=== PATIENT | female | born 1990 | race Caucasian/White ===

== ENCOUNTER 2018-11-29 11:58 | Emergency (ER) | payer BC, OTHER ==
[2018-11-29] MEDS ORDERED: ONDANSETRON HCL INJ/PF 4 MG/2 ML SDV IV ONE (12:25)
[2018-11-29] MEDS ORDERED: NORMAL SALINE 1000 ML 1,000 ML IV ONE (12:25)
--- NOTE | 2018-11-29 12:26 | ER Document Report ---
ED Medical Screen (RME) - General Chief Complaint: Abdominal Pain Stated Complaint: DIFFICULTY BREATHING Time Seen by Provider: 11/29/18 12:23 Primary Care Provider: PADMINI GODWIN MD [Primary Care Provider] - Follow up as needed - [facility] Notes: 11/29/18 12:25 Patient is a 28-year-old female no significant past medical history or surgical history who presents complaining of epigastric abdominal pain that started this morning with associated nausea and vomiting. She is urinating normally and having normal bowel movements. Denies drug allergies. Pain does not radiate. No fever. I have treated and performed a rapid initial assessment of this patient. A comprehensive ED assessment and evaluation of the patient, analysis of test results and completion of medical decision making process will be conducted by additional ED providers. PHYSICAL EXAMINATION: GENERAL: Well-appearing, well-nourished and in no acute distress. - Related Data Allergies/Adverse Reactions: No Known Allergies Allergy (Unverified 11/29/18 12:23) Past Medical History - Social History Chew tobacco use (# tins/day): No Frequency of alcohol use: None Drug Abuse: None Physical Exam - Vital signs Vitals: Temp Pulse Resp BP Pulse Ox 97.8 F 63 32 H 145/88 H 100 11/29/18 12:11 11/29/18 12:11 11/29/18 12:11 11/29/18 12:11 11/29/18 12:11 Course - Vital Signs Vital signs: Temp Pulse Resp BP Pulse Ox 97.8 F 63 32 H 145/88 H 100 11/29/18 12:11 11/29/18 12:11 11/29/18 12:11 11/29/18 12:11 11/29/18 12:11 Doctor's Discharge - Discharge Referrals: PADMINI GODWIN MD [Primary Care Provider] - Follow up as needed
[2018-11-29 13:03] LABS: APPEARANCE,URINE CLEAR; BILIRUBIN,URINE NEGATIVE (NEGATIVE); COLOR,URINE YELLOW; GLUCOSE, URINE NEGATIVE (NEGATIVE); KETONES,URINE 80 mg/dL (NEGATIVE); LEUKOCYTE ESTERASE,URINE NEGATIVE (NEGATIVE); NITRITE,URINE NEGATIVE (NEGATIVE); PROTEIN,URINE NEGATIVE (NEGATIVE); UROBILINOGEN,URINE NEGATIVE mg/dL (<2.0)
[2018-11-29 13:03] LABS: ABSOLUTE LYMPHOCYTES (AUTO) 0.7 10^3/uL (0.5-4.7); ABSOLUTE MONOCYTES (AUTO) 0.2 10^3/uL (0.1-1.4); ABSOLUTE NEUT (AUTO) 5.9 10^3/uL (1.7-8.2); BASOPHILS % (AUTO) 0.2 % (0-2); EOSINOPHILS % (AUTO) 0.1 % (0-6); HEMATOCRIT 41.3 % (36.0-47.0); HEMOGLOBIN 14.3 g/dL (12.0-15.5); LYMPHOCYTES % (AUTO) 10.2 % (13-45); MEAN CORPUSCULAR HEMOGLOBIN 31.3 pg (27.0-33.4); MEAN CORPUSCULAR HGB CONC 34.6 g/dL (32.0-36.0); MEAN CORPUSCULAR VOLUME 91 fl (80-97); MONOCYTES % (AUTO) 3.4 % (3-13); PLATELET COUNT 307 10^3/uL (150-450); RED BLOOD COUNT 4.56 10^6/uL (3.72-5.28); RED CELL DISTRIBUTION WIDTH 12.4 % (11.5-14.0); SEGMENTED NEUTROPHILS % (AUTO) 86.1 % (42-78); TOTAL CELLS COUNTED % (AUTO) 100 %; WHITE BLOOD COUNT 6.9 10^3/uL (4.0-10.5)
[2018-11-29 13:20] LABS: ALBUMIN 4.3 g/dL (3.5-5.0); ALKALINE PHOSPHATASE 76 U/L (38-126); ANION GAP 11 (5-19); ASPARTATE AMINO TRANSFERASE 20 U/L (14-36); BILIRUBIN,TOTAL 0.9 mg/dL (0.2-1.3); BLOOD UREA NITROGEN 14 mg/dL (7-20); CALCIUM 9.1 mg/dL (8.4-10.2); CARBON DIOXIDE 23 mmol/L (22-30); CHLORIDE 104 mmol/L (98-107); GLUCOSE 112 mg/dL (75-110); POTASSIUM 3.8 mmol/L (3.6-5.0); TOTAL PROTEIN 7.7 g/dL (6.3-8.2)
[2018-11-29] MEDS ORDERED: KETOROLAC TROMETHAMINE INJ/PF 30 MG/1 ML SDV IV ONE (14:49)
--- NOTE | 2018-11-29 15:36 | ER Document Report ---
ED General - General Chief Complaint: Abdominal Pain Stated Complaint: DIFFICULTY BREATHING Time Seen by Provider: 11/29/18 12:23 Primary Care Provider: PADMINI GODWIN MD [EMERITUS] - Follow up in 3-5 days Mode of Arrival: Ambulatory Information source: Patient Notes: 28-year-old female presents emergency department with complaints of epigastric abdominal pain and nausea vomiting that started this morning. Reports history of reflux. Denies fever or diarrhea. Denies trauma. Denies pain with void. - HPI Onset: This morning Onset/Duration: Sudden Associated symptoms: Nausea, Vomiting Exacerbated by: Denies Relieved by: Denies Similar symptoms previously: No Recently seen / treated by doctor: No - Related Data Allergies/Adverse Reactions: No Known Allergies Allergy (Unverified 11/29/18 12:23) Past Medical History - General Information source: Patient Last Menstrual Period: Current - Social History Smoking Status: Never Smoker Chew tobacco use (# tins/day): No Frequency of alcohol use: None Drug Abuse: None Lives with: Family Family History: None Patient has suicidal ideation: No Patient has homicidal ideation: No - Medical History Medical History: Negative Surgical Hx: Negative Review of Systems - Review of Systems Notes: Review HPI for review of systems., All other systems negative Physical Exam - Vital signs Vitals: Temp Pulse Resp BP Pulse Ox 97.8 F 63 32 H 145/88 H 100 11/29/18 12:11 11/29/18 12:11 11/29/18 12:11 11/29/18 12:11 11/29/18 12:11 - Notes Notes: PHYSICAL EXAMINATION: GENERAL: Well-appearing and in no acute distress HEAD: Atraumatic, normocephalic. EYES: Pupils equal round and reactive to light, extraocular movements intact, sclera anicteric, conjunctiva are normal. ENT: nares patent, oropharynx clear without exudates. Moist mucous membranes. NECK: Normal range of motion, supple without lymphadenopathy LUNGS: CTAB and equal. No wheezes rales or rhonchi. HEART: Regular rate and rhythm without murmurs ABDOMEN: Soft, epigastric tenderness. No guarding, no rebound BACK: Denies pain, denies flank pain EXTREMITIES: Normal range of motion, NEUROLOGICAL: Cranial nerves grossly intact. PSYCH: Normal mood, normal affect. SKIN: Warm, Dry, normal turgor, no rashes or lesions noted - Abdominal Inspection: Normal Distension: No distension Bowel sounds: Normal Tenderness: Tender - epigastric Organomegaly: No organomegaly Course - Re-evaluation Re-evalutation: 11/29/18 15:35 28-year-old female that woke up with abdominal pain this a.m. with some nausea and vomiting. Reports she ate chicken and potatoes last night for dinner. Reports that she does have a history of reflux. Labs are unremarkable , will do gallbladder ultrasound to evaluate. gallbladder unremarkable, pt is no longer vomiting, drinking po. The patient and her family were instructed on all results. Prescribe Zofran to go. In structed to follow-up with primary care provider for evaluation within 1 week. She verbalized understanding to all instructions. 11/29/18 12:40 11/29/18 12:40 MCV 91 fl (80-97) 11/29/18 12:40 MCH 31.3 pg (27.0-33.4) 11/29/18 12:40 MCHC 34.6 g/dL (32.0-36.0) 11/29/18 12:40 RDW 12.4 % (11.5-14.0) 11/29/18 12:40 Seg Neutrophils % 86.1 % (42-78) H 11/29/18 12:40 Chloride 104 mmol/L (98-107) 11/29/18 12:40 Carbon Dioxide 23 mmol/L (22-30) 11/29/18 12:40 Anion Gap 11 (5-19) 11/29/18 12:40 Est GFR ( Amer) > 60 (>60) 11/29/18 12:40 Glucose 112 mg/dL (75-110) H 11/29/18 12:40 Calcium 9.1 mg/dL (8.4-10.2) 11/29/18 12:40 Total Bilirubin 0.9 mg/dL (0.2-1.3) 11/29/18 12:40 AST 20 U/L (14-36) 11/29/18 12:40 Alkaline Phosphatase 76 U/L (38-126) 11/29/18 12:40 Total Protein 7.7 g/dL (6.3-8.2) 11/29/18 12:40 Albumin 4.3 g/dL (3.5-5.0) 11/29/18 12:40 Lipase 59.8 U/L (23-300) 11/29/18 12:40 Urine Color YELLOW 11/29/18 12:20 Urine Appearance CLEAR 11/29/18 12:20 Urine pH 5.0 (5.0-9.0) 11/29/18 12:20 Ur Specific Eleele 1.030 11/29/18 12:20 Urine Protein NEGATIVE mg/dL (NEGATIVE) 11/29/18 12:20 Urine Glucose (UA) NEGATIVE mg/dL (NEGATIVE) 11/29/18 12:20 Urine Ketones 80 mg/dL (NEGATIVE) H 11/29/18 12:20 Urine Blood SMALL (NEGATIVE) H 11/29/18 12:20 Urine Nitrite NEGATIVE (NEGATIVE) 11/29/18 12:20 Ur Leukocyte Esterase NEGATIVE (NEGATIVE) 11/29/18 12:20 Urine WBC (Auto) 1 /HPF 11/29/18 12:20 Urine RBC (Auto) 1 /HPF 11/29/18 12:20 Abdomen Ultrasound 11/29/18 14:49 IMPRESSION: Unremarkable right upper quadrant ultrasound. 11/29/18 18:22 - Vital Signs Vital signs: Temp Pulse Resp BP Pulse Ox 98.0 F 64 32 H 130/81 H 100 11/29/18 17:02 11/29/18 17:02 11/29/18 12:11 11/29/18 17:02 11/29/18 17:02 - Laboratory Result Diagrams: 11/29/18 12:40 11/29/18 12:40 Laboratory results interpreted by me: 11/29/18 11/29/18 11/29/18 12:20 12:40 12:40 Lymph % (Auto) 10.2 L Seg Neutrophils % 86.1 H Glucose 112 H Urine Ketones 80 H Urine Blood SMALL H - Diagnostic Test Radiology reviewed: Image reviewed, Reports reviewed Discharge - Discharge Clinical Impression: Abdominal pain Qualifiers: Abdominal location: epigastric Qualified Code(s): R10.13 - Epigastric pain Nausea & vomiting Qualifiers: Vomiting type: unspecified Vomiting Intractability: non-intractable Qualified Code(s): R11.2 - Nausea with vomiting, unspecified Disposition: HOME, SELF-CARE Instructions: Abdominal Pain ([facility]), Antinausea Medication ([facility]), Vomiting ([facility]) Additional Instructions: *You have been evaluated for abdominal pain, nausea and vomiting *Here ultrasound was negative for gallstones, your work-up was unremarkable *Take medication as prescribed for nausea *Follow up with a primary care provider within one week for recheck *Return to ED for worsening condition, changes, needs, concerns increasing abd ominal pain *Return to ED if not better in 24 hours Monitor your blood pressure. Your blood pressure was elevated today. This may be because you were anxious, in pain or because you need medication. It is important to follow up with your primary care provider for full evaluation. Forms: Elevated Blood Pressure Referrals: PADMINI GODWIN MD [EMERITUS] - Follow up in 3-5 days
--- NOTE | 2018-11-29 16:25 | RADIOLOGY REPORT (SQ) ---
EXAM DESCRIPTION: U/S ABDOMEN LIMITED W/O DOP COMPLETED DATE/TIME: 11/29/2018 4:16 pm REASON FOR STUDY: epigastric pain COMPARISON: None. TECHNIQUE: Dynamic and static grayscale images acquired of the abdomen and recorded on PACS. Additio nal selected color Doppler and spectral images recorded. LIMITATIONS: None. FINDINGS: PANCREAS: No masses. Visualized pancreatic duct normal caliber. LIVER: No masses. Echotexture normal. LIVER VASCULATURE: Normal directional flow of the main portal vein and hepatic veins. GALLBLADDER: No stones. Normal wall thickness. No pericholecystic fluid. ULTRASOUND-DETECTED PLUNKETT'S SIGN: Negative. INTRAHEPATIC DUCTS AND COMMON DUCT: CBD and intrahepatic ducts normal caliber. No filling defects. INFERIOR VENA CAVA: Normal flow. AORTA: No aneurysm. RIGHT KIDNEY: Normal size measuring 11.1 cm. Normal echogenicity. No solid or suspicious masses. No hydronephrosis. No calcifications. PERITONEAL AND RIGHT PLEURAL SPACE: No ascites or effusions. OTHER: No other significant findings. IMPRESSION: Unremarkable right upper quadrant ultrasound. TECHNICAL DOCUMENTATION: JOB ID: [id number] [employer]- All Rights Reserved Reading location - IP/workstation name: [email or web address]
[2018-11-29] MEDS ORDERED: ONDANSETRON ODT 4 MG TAB (6 TAB/ER DISP) PO PRN (16:39)
[2018-11-29 17:02] VITALS: BP 130/81
== END 2018-11-29 17:03 | disposition home or self-care (01) ==
LOC: ER 11:58
DX: R10.13 Epigastric pain (principal); R11.2 Nausea with vomiting, unspecified
CPT/HCPCS: 36415; 83690; 85025; 81025; 80053; 81001; 76705; J1885; J2405; J7030; 96361; 96374; 96375; 99284